=== PATIENT | male | born 1955 | race Caucasian/White ===

== ENCOUNTER 2021-03-27 08:11 | Inpatient (IN) | payer MEDICARE, OTHER ==
[2021-03-24 10:25] VITALS: BMI 27.3
[2021-03-27] MEDS ORDERED: Bacitracin Zinc Ointment 30 gm TUBE ONE (09:33)
[2021-03-27] MEDS ORDERED: Fentanyl 100 MCG/2 ML VIAL ONE ×3 (09:52→13:19)
[2021-03-27] MEDS ORDERED: Ondansetron PF 4 MG/2 ML Vial ONE (10:09)
[2021-03-27] MEDS ORDERED: PHENYLEPHRINE-NS 100 MCG/ML 10 ML SYRINGE ONE (10:09)
[2021-03-27] MEDS ORDERED: PROPOFOL 200 MG/20 ML VIAL ONE (10:09)
[2021-03-27] MEDS ORDERED: ePHEDrine Sulfate 50 MG/10 ML VIAL ONE (10:09)
[2021-03-27] MEDS ORDERED: Rocuronium Bromide 10 MG/ML (10ML VIAL) ONE (10:09)
[2021-03-27] MEDS ORDERED: Dexamethasone 20 MG/5 ML VIAL ONE (10:09)
[2021-03-27] MEDS ORDERED: Lidocaine 1% PF 5 ML VIAL ONE (10:09)
[2021-03-27] MEDS ORDERED: SUGAMMADEX SODIUM 200 MG/2 ML VIAL ONE (12:09)
[2021-03-27] MEDS ORDERED: Ondansetron HCl/PF 4 MG/2 ML Vial IVP PRN ×2 (13:03→14:30)
[2021-03-27] MEDS ORDERED: Promethazine HCl 25 MG/ML VIAL IM PRN ×2 (13:03→16:30)
[2021-03-27] MEDS ORDERED: Morphine Sulfate 2 MG/ML SYRINGE SLOW IVP PRN (13:03)
[2021-03-27] MEDS ORDERED: Promethazine HCl 25 MG/ML VIAL SLOW IVP PRN (13:03)
[2021-03-27] MEDS ORDERED: HYDROmorphone 2 MG/ML VIAL ONE ×2 (13:38→14:22)
[2021-03-27] MEDS ORDERED: Promethazine HCl 25 MG/ML VIAL IM/IV PRN (14:30)
[2021-03-27] MEDS ORDERED: HYDROmorphone 2 MG/ML VIAL SLOW IVP PRN (14:30)
[2021-03-27] MEDS ORDERED: Tamsulosin HCl 0.4 MG CAP ONE (15:37)
[2021-03-27] MEDS ORDERED: Ondansetron PF 4 MG/2 ML Vial IVP PRN (16:29)
[2021-03-27] MEDS ORDERED: diphenhydrAMINE 25 MG CAP PO PRN (16:30)
[2021-03-27] MEDS ORDERED: Promethazine 25 MG TAB PO PRN (16:30)
[2021-03-27] MEDS ORDERED: diphenhydrAMINE 50 MG/ML VIAL IVP PRN (16:30)
[2021-03-27] MEDS ORDERED: Promethazine HCl 12.5 MG SUPP PR PRN (16:30)
[2021-03-27] MEDS ORDERED: HYDROcodone/Acetaminophen 10/325 mg Tablet PO PRN ×2 (16:30)
[2021-03-27] MEDS ORDERED: traMADol HCl 50 MG TAB PO PRN (16:30)
[2021-03-27] MEDS ORDERED: Milk Of Magnesia 30 ML UDCUP PO PRN (16:30)
[2021-03-27] MEDS ORDERED: Mag-Al 1200 mg/1200 mg/30 ML UDCUP PO PRN (16:30)
[2021-03-27] MEDS ORDERED: oxyCODONE/Acetaminophen 5 mg/325 mg Tablet PO PRN (16:34)
[2021-03-27] MEDS: Morphine 2 MG/ML VIAL SLOW IVP PRN ×3 (16:53→20:10)
[2021-03-27] MEDS: CEFAZOLIN 2 GM in Premix Bag 1 BAG IVPB SCH (17:03)
[2021-03-27] MEDS: tiZANidine HCl 4 MG TAB PO PRN (18:01)
[2021-03-27] MEDS: oxyCODONE/Acetaminophen 5 mg/325 mg Tablet PO PRN (20:36)
[2021-03-27] MEDS: Tamsulosin HCl 0.4 MG CAP PO SCH (20:37)
[2021-03-27] MEDS: Gabapentin 300 MG CAP PO SCH (20:37)
[2021-03-27] MEDS: Sodium Chloride 0.9% 1,000 ML IV SCH (20:39)
[2021-03-28] MEDS: oxyCODONE/Acetaminophen 5 mg/325 mg Tablet PO PRN ×4 (02:21→21:13)
[2021-03-28] MEDS: CEFAZOLIN 2 GM in Premix Bag 1 BAG IVPB SCH ×3 (02:22→18:25)
[2021-03-28] MEDS: Sodium Chloride 0.9% 1,000 ML IV SCH ×2 (04:42→15:03)
[2021-03-28] MEDS: Morphine 2 MG/ML VIAL SLOW IVP PRN ×2 (07:11→18:48)
[2021-03-28] MEDS: Hydrochlorothiazide 25 MG TAB PO SCH (08:17)
[2021-03-28] MEDS: Atenolol 50 MG TAB PO SCH (08:17)
[2021-03-28] MEDS: Multivit, Therapeutic 1 TAB PO SCH (08:17)
[2021-03-28] MEDS: Gabapentin 300 MG CAP PO SCH ×2 (08:17→19:48)
[2021-03-28] MEDS: Tamsulosin HCl 0.4 MG CAP PO SCH (19:48)
[2021-03-29] MEDS: oxyCODONE/Acetaminophen 5 mg/325 mg Tablet PO PRN ×2 (02:36→09:14)
[2021-03-29] MEDS: CEFAZOLIN 2 GM in Premix Bag 1 BAG IVPB SCH (02:37)
[2021-03-29] MEDS: traMADol HCl 50 MG TAB PO PRN ×2 (06:28→10:43)
[2021-03-29] MEDS: tiZANidine HCl 4 MG TAB PO PRN ×2 (06:28→10:45)
[2021-03-29] MEDS: Atenolol 50 MG TAB PO SCH (09:11)
[2021-03-29] MEDS: Multivit, Therapeutic 1 TAB PO SCH (09:11)
[2021-03-29] MEDS: Sodium Chloride 0.9% 1,000 ML IV SCH (09:11)
[2021-03-29] MEDS: Gabapentin 300 MG CAP PO SCH (09:12)
[2021-03-29] MEDS: Hydrochlorothiazide 25 MG TAB PO SCH (09:15)
[2021-03-29] MEDS: Morphine 2 MG/ML VIAL SLOW IVP PRN (14:19)
[2021-03-29 15:38] VITALS: TEMP 98.3
[2021-03-29 16:01] VITALS: BP 116/77
== END 2021-03-29 16:33 | DRG 453 ==
LOC: SDC 08:11 → SURG A 13:27
PROVIDERS: ADMIT Neurological Surgery; ATTEND Neurological Surgery
PROC: 0RG20A0 Fusion of 2 or more Cervical Vertebral Joints with Interbody Fusion Device, Anterior Approach, Anterior Column, Open Approach (ICD-10-PCS; principal; 2021-03-27)
PROC: 0RG2071 Fusion of 2 or more Cervical Vertebral Joints with Autologous Tissue Substitute, Posterior Approach, Posterior Column, Open Approach (ICD-10-PCS; 2021-03-27)
PROC: 0RB30ZZ Excision of Cervical Vertebral Disc, Open Approach (ICD-10-PCS; 2021-03-27)
PROC: 00NW0ZZ Release Cervical Spinal Cord, Open Approach (ICD-10-PCS; 2021-03-27)
DX: M47.12 Other spondylosis with myelopathy, cervical region (principal); G82.50 Quadriplegia, unspecified; Z20.822 Contact with and (suspected) exposure to COVID-19; M48.061 Spinal stenosis, lumbar region without neurogenic claudication; R29.6 Repeated falls; N40.0 Benign prostatic hyperplasia without lower urinary tract symptoms; I10 Essential (primary) hypertension; M19.90 Unspecified osteoarthritis, unspecified site; Z99.3 Dependence on wheelchair; Z91.81 History of falling; Z79.899 Other long term (current) drug therapy; Z79.82 Long term (current) use of aspirin
CPT/HCPCS: 76000; C1713; C1768; C1776; J0690; J1100; J1170; J2270; J2405; J2704; J3010; J3370; J3490; Q0163

== ENCOUNTER 2021-04-18 10:29 | Outpatient (CLI) | payer MEDICARE, OTHER | END 2021-04-18 10:30 | disposition home or self-care (01) | LOC: TBSIIMAG 10:29 | PROVIDERS: ATTEND Neurological Surgery | DX: M47.12 Other spondylosis with myelopathy, cervical region (principal); Z98.1 Arthrodesis status | CPT/HCPCS: 72040 ==

== ENCOUNTER 2022-01-01 08:35 | Inpatient (IN) | payer MEDICARE, OTHER ==
[2021-12-26 13:36] VITALS: BMI 27.3
[2022-01-01 09:59] LABS: #Eosinphils 0.1 thou/uL (0.0-0.7); #Lymphocytes 1.4 thou/uL (1.20-3.40); #Monocytes 0.5 thou/uL (0.11-0.59); #Neutrophils 3.6 thou/uL (1.40-6.50); %Basophils 0.2 % (0.0-1.0); %Eosinophils 1.9 % (0.0-10.0); %Lymphocytes 24.9 % (21.0-51.0); %Monocytes 9.4 % (0.0-10.0); %Neutrophils 63.6 % (42.0-75.0); Hemoglobin 16.1 g/dL (14.0-18.0); Mean Corpuscular HGB CONC 32.3 g/dL (32.0-36.0); Mean Corpuscular Hemoglobin 28.9 pg (27.0-31.0); Mean Corpuscular Volume 89.6 fL (78.0-98.0); Mean Platelet Volume 8.2 fL (7.4-10.4); Platelet Count 251 thou/uL (130-400); RBC Distribution Width 11.8 % (11.5-14.5); Red Blood Cell (RBC) Count 5.59 mill/uL (4.70-6.10); White Blood Cell (WBC) Count 5.7 thou/uL (4.8-10.8)
[2022-01-01] MEDS ORDERED: HYDROmorphone 0.5 MG/0.5 ML SYRINGE ONE (09:59)
[2022-01-01] MEDS ORDERED: Lidocaine 2% Jelly 5 ML TUBE ONE (09:59)
[2022-01-01] MEDS ORDERED: Fentanyl 100 MCG/2 ML VIAL ONE ×2 (09:59→13:28)
[2022-01-01] MEDS ORDERED: Midazolam HCl 2 mg/2 ml Vial ONE (09:59)
[2022-01-01] MEDS ORDERED: ceFAZolin 2 GM/Dextrose 50 ML IVPB ONE (10:15)
[2022-01-01] MEDS ORDERED: Glycopyrrolate 0.2 MG/ML 5 ML SYRINGE ONE (10:44)
[2022-01-01] MEDS ORDERED: Dexamethasone 20 MG/5 ML VIAL ONE (10:44)
[2022-01-01] MEDS ORDERED: Lidocaine 1% PF 5 ML VIAL ONE (10:44)
[2022-01-01] MEDS ORDERED: PHENYLEPHRINE-NS 100 MCG/ML 10 ML SYRINGE ONE ×2 (10:44→11:48)
[2022-01-01] MEDS ORDERED: Rocuronium Bromide 10 MG/ML (10ML VIAL) ONE (10:44)
[2022-01-01] MEDS ORDERED: PROPOFOL 200 MG/20 ML VIAL ONE (10:44)
[2022-01-01] MEDS ORDERED: Ondansetron PF 4 MG/2 ML Vial ONE (10:44)
[2022-01-01] MEDS ORDERED: ePHEDrine 50 MG/ML VIAL ONE (10:44)
[2022-01-01 11:29] LABS: Calcium 9.2 mg/dL (7.8-10.44); Chloride 102 mmol/L (98-107); Potassium 3.9 mmol/L (3.5-5.1); Sodium 137 mmol/L (136-145)
[2022-01-01 11:30] LABS: Glucose 103 mg/dL (80-115)
[2022-01-01 11:31] LABS: Anion Gap 13 mmol/L (10-20); Carbon Dioxide 26 mmol/L (23-31)
[2022-01-01 11:33] LABS: Calc. Creatinine Clearance 122 mL/min (70-130)
[2022-01-01 11:34] LABS: BUN (Urea Nitrogen) 13 mg/dL (8.4-25.7)
[2022-01-01] MEDS ORDERED: Morphine 4 MG/ML VIAL SLOW IVP PRN (13:40)
[2022-01-01] MEDS ORDERED: oxyCODONE/Acetaminophen 5 mg/325 mg Tablet PO PRN (13:43)
[2022-01-01] MEDS ORDERED: Cyclobenzaprine 10 MG TAB PO PRN (13:45)
[2022-01-01] MEDS ORDERED: Mag-Al 1200 mg/1200 mg/30 ML UDCUP PO PRN (13:45)
[2022-01-01] MEDS ORDERED: traMADol HCl 50 MG TAB PO PRN ×2 (13:45)
[2022-01-01] MEDS ORDERED: Promethazine HCl 25 MG/ML VIAL IM PRN (13:45)
[2022-01-01] MEDS ORDERED: diphenhydrAMINE 50 MG/ML VIAL IVP PRN (13:45)
[2022-01-01] MEDS ORDERED: Promethazine HCl 12.5 MG SUPP PR PRN (13:45)
[2022-01-01] MEDS ORDERED: Milk Of Magnesia 30 ML UDCUP PO PRN (13:45)
[2022-01-01] MEDS ORDERED: Ondansetron PF 4 MG/2 ML Vial IM PRN (13:45)
[2022-01-01] MEDS ORDERED: diphenhydrAMINE 25 MG CAP PO PRN (13:45)
[2022-01-01] MEDS ORDERED: Promethazine 25 MG TAB PO PRN (13:45)
[2022-01-01] MEDS ORDERED: ceFAZolin 2 GM/Dextrose 50 ML 2 GM in Premix Bag 1 BAG IVPB SCH (14:00)
[2022-01-01] MEDS: Sodium Chloride 0.9% 1,000 ML IV SCH (14:54)
[2022-01-01] MEDS: oxyCODONE/Acetaminophen 5 mg/325 mg Tablet PO PRN ×2 (14:55→20:59)
[2022-01-01] MEDS: Morphine 4 MG/ML VIAL SLOW IVP PRN ×2 (17:38→23:00)
[2022-01-01] MEDS: ceFAZolin 2 GM/Dextrose 50 ML 2 GM in Premix Bag 1 BAG IVPB SCH (17:39)
[2022-01-01] MEDS ORDERED: Polyethylene Glycol 3350 17 GM Packet PO PRN (18:11)
[2022-01-01] MEDS: Senokot S 8.6-50 MG TAB PO SCH (20:58)
[2022-01-01] MEDS: Finasteride 5 MG TAB PO SCH (20:58)
[2022-01-01] MEDS: Tamsulosin HCl 0.4 MG CAP PO SCH (20:59)
[2022-01-02] MEDS: ceFAZolin 2 GM/Dextrose 50 ML 2 GM in Premix Bag 1 BAG IVPB SCH ×3 (01:21→17:31)
[2022-01-02] MEDS: Sodium Chloride 0.9% 1,000 ML IV SCH ×2 (03:33→17:26)
[2022-01-02] MEDS: oxyCODONE/Acetaminophen 5 mg/325 mg Tablet PO PRN ×4 (04:15→23:29)
[2022-01-02] MEDS ORDERED: Atenolol 50 MG TAB PO SCH (09:00)
[2022-01-02] MEDS: Senokot S 8.6-50 MG TAB PO SCH ×2 (09:20→23:28)
[2022-01-02] MEDS: Atenolol 25 MG TAB PO SCH (09:21)
[2022-01-02] MEDS: Finasteride 5 MG TAB PO SCH (20:28)
[2022-01-02] MEDS: Tamsulosin HCl 0.4 MG CAP PO SCH (20:28)
[2022-01-03] MEDS: ceFAZolin 2 GM/Dextrose 50 ML 2 GM in Premix Bag 1 BAG IVPB SCH ×3 (02:04→17:56)
[2022-01-03] MEDS: Sodium Chloride 0.9% 1,000 ML IV SCH ×2 (05:08→20:37)
[2022-01-03] MEDS: oxyCODONE/Acetaminophen 5 mg/325 mg Tablet PO PRN ×3 (05:47→18:01)
[2022-01-03 06:05] LABS: #Eosinphils 0.1 thou/uL (0.0-0.7); #Lymphocytes 2.4 thou/uL (1.20-3.40); #Monocytes 1.2 thou/uL (0.11-0.59); #Neutrophils 4.9 thou/uL (1.40-6.50); %Basophils 0.4 % (0.0-1.0); %Eosinophils 0.8 % (0.0-10.0); %Lymphocytes 28.2 % (21.0-51.0); %Monocytes 13.9 % (0.0-10.0); %Neutrophils 56.7 % (42.0-75.0); Mean Corpuscular Hemoglobin 30.1 pg (27.0-31.0); Mean Corpuscular Volume 91.3 fL (78.0-98.0); Mean Platelet Volume 7.6 fL (7.4-10.4); Platelet Count 230 thou/uL (130-400); RBC Distribution Width 11.9 % (11.5-14.5); Red Blood Cell (RBC) Count 3.98 mill/uL (4.70-6.10); White Blood Cell (WBC) Count 8.7 thou/uL (4.8-10.8)
[2022-01-03 06:17] LABS: Anion Gap 10 mmol/L (10-20); BUN (Urea Nitrogen) 12 mg/dL (8.4-25.7); Calc. Creatinine Clearance 112 mL/min (70-130); Calcium 8.5 mg/dL (7.8-10.44); Carbon Dioxide 29 mmol/L (23-31); Chloride 104 mmol/L (98-107); Glucose 94 mg/dL (80-115); Potassium 3.7 mmol/L (3.5-5.1); Sodium 139 mmol/L (136-145)
[2022-01-03] MEDS: Senokot S 8.6-50 MG TAB PO SCH ×2 (11:56→20:37)
[2022-01-03] MEDS: Atenolol 25 MG TAB PO SCH (11:57)
[2022-01-03] MEDS: Tamsulosin HCl 0.4 MG CAP PO SCH (20:37)
[2022-01-03] MEDS: Finasteride 5 MG TAB PO SCH (20:37)
[2022-01-04] MEDS: oxyCODONE/Acetaminophen 5 mg/325 mg Tablet PO PRN ×4 (01:10→19:58)
[2022-01-04] MEDS: ceFAZolin 2 GM/Dextrose 50 ML 2 GM in Premix Bag 1 BAG IVPB SCH (01:17)
[2022-01-04] MEDS: Atenolol 25 MG TAB PO SCH (09:47)
[2022-01-04] MEDS: Senokot S 8.6-50 MG TAB PO SCH ×2 (09:48→20:02)
[2022-01-04] MEDS: Sodium Chloride 0.9% 1,000 ML IV SCH ×2 (09:48→23:25)
[2022-01-04] MEDS: Tamsulosin HCl 0.4 MG CAP PO SCH (20:00)
[2022-01-04] MEDS: Finasteride 5 MG TAB PO SCH (20:02)
[2022-01-05] MEDS: oxyCODONE/Acetaminophen 5 mg/325 mg Tablet PO PRN ×4 (02:08→20:12)
[2022-01-05] MEDS: Atenolol 25 MG TAB PO SCH (08:25)
[2022-01-05] MEDS: Senokot S 8.6-50 MG TAB PO SCH ×2 (08:25→20:15)
[2022-01-05] MEDS: Sodium Chloride 0.9% 1,000 ML IV SCH (14:04)
[2022-01-05] MEDS: Finasteride 5 MG TAB PO SCH (20:12)
[2022-01-05] MEDS: Tamsulosin HCl 0.4 MG CAP PO SCH (20:12)
[2022-01-06] MEDS: Sodium Chloride 0.9% 1,000 ML IV SCH (01:38)
[2022-01-06] MEDS: oxyCODONE/Acetaminophen 5 mg/325 mg Tablet PO PRN ×2 (02:48→08:40)
[2022-01-06 08:07] VITALS: BP 109/68; TEMP 97.8
[2022-01-06] MEDS: Atenolol 25 MG TAB PO SCH (08:40)
[2022-01-06] MEDS: Senokot S 8.6-50 MG TAB PO SCH (08:52)
== END 2022-01-06 12:54 | DRG 465 ==
LOC: SDC 08:35 → SURG B 08:35 → SDC 15:43 → SURG B 15:43 → OBSVTOIN 01-04 08:08
PROVIDERS: ADMIT Neurological Surgery; ATTEND Hospitalist
PROC: 01NB0ZZ Release Lumbar Nerve, Open Approach (ICD-10-PCS; principal; 2022-01-01)
PROC: 0JB70ZZ Excision of Back Subcutaneous Tissue and Fascia, Open Approach (ICD-10-PCS; 2022-01-01)
DX: M48.062 Spinal stenosis, lumbar region with neurogenic claudication (principal); D17.79 Benign lipomatous neoplasm of other sites; Z20.822 Contact with and (suspected) exposure to COVID-19; I10 Essential (primary) hypertension; N40.0 Benign prostatic hyperplasia without lower urinary tract symptoms; G89.4 Chronic pain syndrome; I12.9 Hypertensive chronic kidney disease with stage 1 through stage 4 chronic kidney disease, or unspecified chronic kidney disease; F17.210 Nicotine dependence, cigarettes, uncomplicated; Z79.899 Other long term (current) drug therapy; Z98.890 Other specified postprocedural states; Z80.0 Family history of malignant neoplasm of digestive organs; Z97.8 Presence of other specified devices
CPT/HCPCS: 36415; 76000; 80048; 85025; 88304; 93005; 93010; 96365; 96366; 96375; 96376; C1713; G0378; J0690; J1100; J1170; J2250; J2270; J2405; J2704; J3010; J3370; J3490; J7050